=== PATIENT | male | born 1955 | race Caucasian/White ===

== ENCOUNTER 2021-09-07 11:27 | Emergency (ER) | payer MEDICARE ==
[2021-09-07] MEDS ORDERED: Sodium Chloride 0.9% 10 ML Syringe FLUSH PRN ×2 (13:02→13:05)
[2021-09-07] MEDS ORDERED: Iopamidol 755 Mg/ML 100 ML Bottle IVPUSH ONE (13:05)
[2021-09-07 13:09] LABS: CORONAVIRUS COVID-19 NAA NEGATIVE (NEGATIVE)
[2021-09-07] MEDS ORDERED: Sodium Chloride 0.9% 100 ML IV SCH (13:15)
== END 2021-09-07 15:00 | disposition home or self-care (01) ==
LOC: JD.ED 11:27
DX: R55 Syncope and collapse (principal); J40 Bronchitis, not specified as acute or chronic; I10 Essential (primary) hypertension; Z87.891 Personal history of nicotine dependence; Z20.822 Contact with and (suspected) exposure to COVID-19
CPT/HCPCS: 0240U; 36415; 71275; 80053; 84484; 85025; 85379; 99284; Q9967